=== PATIENT | female | born 1995 | race African-American/Black ===

== ENCOUNTER 2018-01-05 08:33 | Inpatient (IN) | payer OTHER ==
[2018-01-05] MEDS ORDERED: morphine 10 MG INJ (14:36)
[2018-01-05] MEDS: morphine 10 MG INJ IM (14:40)
[2018-01-05] MEDS: LACTATED RINGER'S 1,000 ML IV (14:40)
[2018-01-05] MEDS: LACTATED RINGER'S 1,000 ML IV* (19:40)
[2018-01-05] MEDS ORDERED: LACTATED RINGER'S 1,000 ML IV (19:45)
[2018-01-05] MEDS ORDERED: MISOPROSTOL 200 MCG TAB PR (20:00)
[2018-01-05] MEDS ORDERED: CARBOPROST 250 MCG INJ IM (20:00)
[2018-01-05] MEDS ORDERED: IBUPROFEN 600 MG TAB PO (20:00)
[2018-01-05] MEDS ORDERED: METHYLERGONOVINE 0.2 MG INJ IM (20:00)
[2018-01-05] MEDS ORDERED: OXYTOCIN 30 UNITS/LR 500 ML IV (20:00)
[2018-01-05 20:11] LABS: ADD MAN DIFF? NO
[2018-01-05 20:13] LABS: BASOPHILS % 0.2 % (0.0-2.0); EOSINOPHILS % 0.2 % (0.0-7.0); HEMATOCRIT 34.8 % (37.0-47.0); HEMOGLOBIN 11.5 g/dl (12.0-16.0); LYMPHOCYTES # 1.7 10^3/ul (0.8-2.9); LYMPHOCYTES % 9.9 % (15.0-51.0); MEAN CORPUSCULAR HEMOGLOBIN 26.7 pg (29.0-33.0); MEAN CORPUSCULAR VOLUME 80.7 fl (82.0-101.0); MEAN PLATELET VOLUME 11.6 fl (7.4-10.4); MONOCYTE # 1.5 10^3/ul (0.3-0.9); MONOCYTES % 8.9 % (0.0-11.0); NEUTROPHIL # 13.6 10^3/ul (1.6-7.5); NEUTROPHILS % 80.2 % (39.0-77.0); PLATELET COUNT 259 10^3/UL (140-415); RED BLOOD COUNT 4.31 10^6/ul (4.20-5.40); RED CELL DISTRIBUTION WIDTH 13.8 % (11.5-14.5)
[2018-01-05 20:13] LABS: WHITE BLOOD COUNT 16.9 10^3/ul (4.8-10.8)
[2018-01-05 20:36] LABS: INR 0.91; PROTIME 12.3 Sec (11.9-14.9)
[2018-01-05 20:37] LABS: PARTIAL THROMBOPLASTIN TIME 28.8 Sec (23.0-35.0)
[2018-01-05 21:02] LABS: HEPATITIS B SURFACE ANTIGEN NEGATIVE (NEGATIVE)
[2018-01-05] MEDS: AMPICILLIN 2 GM/NS (PMX) 100 ML IV (23:03)
[2018-01-06] MEDS ORDERED: AMPICILLIN 1 GM/NS (PMX) 50 ML IV
[2018-01-06] MEDS: BUTORPHANOL 2 MG INJ IV (00:10)
[2018-01-06] MEDS: LACTATED RINGER'S 1,000 ML IV* ×4 (00:32→19:00)
[2018-01-06] MEDS: AMPICILLIN 1 GM/NS (PMX) 50 ML IV ×3 (03:02→11:00)
[2018-01-06] MEDS ORDERED: NALOXONE (0.4 MG/ML) INJ IV (05:00)
[2018-01-06 06:53] LABS: HIV 1&2 ANTIBODY NEGATIVE (NEGATIVE)
[2018-01-06] MEDS ORDERED: OXYTOCIN 30 UNITS/LR 500 ML IV ×2 (10:30→17:00)
[2018-01-06] MEDS ORDERED: TERBUTALINE 0 ML (10:46)
[2018-01-06] MEDS: FENTAnyl 2MCG/ML-ROPIV 0.2% 100 ML BAG EPI (11:54)
[2018-01-06] MEDS: OXYTOCIN 30 UNITS/LR 500 ML IV ×3 (13:20→18:19)
[2018-01-06 15:39] LABS: RAPID PLASMA REAGIN NONREACTIVE (NR)
[2018-01-06] MEDS ORDERED: MISOPROSTOL 200 MCG TAB PR (17:00)
[2018-01-06] MEDS ORDERED: ZOLPIDEM 5 MG TAB PO (17:00)
[2018-01-06] MEDS ORDERED: DIBUCAINE 1% 30 GM OINT TOP (17:00)
[2018-01-06] MEDS ORDERED: HYDROCODONE/APAP (5/325) TAB PO ×2 (17:00)
[2018-01-06] MEDS ORDERED: METHYLERGONOVINE 0.2 MG INJ IM (17:00)
[2018-01-06] MEDS ORDERED: CARBOPROST 250 MCG INJ IM (17:00)
[2018-01-06] MEDS: WITCH HAZEL/GLYCERIN PAD PR (18:12)
[2018-01-06] MEDS: IBUPROFEN 600 MG TAB PO (18:13)
[2018-01-06] MEDS: CEPHALEXIN 500 MG CAP PO (18:13)
[2018-01-06] MEDS: BENZOCAINE 20% 56 ML SPRAY TOP (18:13)
[2018-01-06] MEDS: LANOLIN 7 GM TUBE TOP (18:14)
[2018-01-06] MEDS: TERBUTALINE 1 MG/ML INJ SC (19:00)
[2018-01-06] MEDS: LIDOCAINE 0.5% (SDV) 50 ML INJ INFIL (19:00)
[2018-01-06] MEDS: MINERAL OIL LIGHT 10 ML VIAL TOP (19:00)
[2018-01-06] MEDS: SENNA/DOCUSATE NA (8.6MG/50MG) TAB PO (20:58)
[2018-01-06] MEDS: MAGNESIUM HYDROXIDE 30ML CUP PO (20:58)
[2018-01-07] MEDS: IBUPROFEN 600 MG TAB PO ×3 (00:01→12:37)
[2018-01-07] MEDS: CEPHALEXIN 500 MG CAP PO ×4 (00:01→18:08)
[2018-01-07] MEDS: LACTATED RINGER'S 1,000 ML IV* ×2 (00:59→06:24)
[2018-01-07 07:52] LABS: ADD MAN DIFF? NO
[2018-01-07 08:12] LABS: ABNORMAL IP MESSAGE 1; BASOPHILS % 0.2 % (0.0-2.0); EOSINOPHILS # 0.1 10^3/ul (0.0-0.5); EOSINOPHILS % 0.5 % (0.0-7.0); HEMATOCRIT 32.6 % (37.0-47.0); HEMOGLOBIN 10.7 g/dl (12.0-16.0); LYMPHOCYTES # 2.7 10^3/ul (0.8-2.9); LYMPHOCYTES % 15.5 % (15.0-51.0); MEAN CORPUSCULAR HEMOGLOBIN 26.3 pg (29.0-33.0); MEAN CORPUSCULAR HGB CONC 32.8 g/dl (32.0-37.0); MEAN CORPUSCULAR VOLUME 80.1 fl (82.0-101.0); MEAN PLATELET VOLUME 10.8 fl (7.4-10.4); MONOCYTE # 2.5 10^3/ul (0.3-0.9); MONOCYTES % 14.6 % (0.0-11.0); NEUTROPHIL # 11.9 10^3/ul (1.6-7.5); NEUTROPHILS % 68.7 % (39.0-77.0); PLATELET COUNT 228 10^3/UL (140-415); RED BLOOD COUNT 4.07 10^6/ul (4.20-5.40); RED CELL DISTRIBUTION WIDTH 13.9 % (11.5-14.5)
[2018-01-07 08:12] LABS: WHITE BLOOD COUNT 17.3 10^3/ul (4.8-10.8)
[2018-01-07 08:14] LABS: POSITIVE DIFF @See below
[2018-01-07] MEDS: SENNA/DOCUSATE NA (8.6MG/50MG) TAB PO ×2 (09:48→21:00)
[2018-01-07] MEDS: MAGNESIUM HYDROXIDE 30ML CUP PO ×2 (09:48→21:00)
[2018-01-07 11:27] LABS: RHOGAM PROFILE 1 1
[2018-01-07 11:36] LABS: RUBELLA ANTIBODY - IGG 7.57 index
[2018-01-07] MEDS: IBUPROFEN 200 MG TAB PO (18:11)
[2018-01-08] MEDS: IBUPROFEN 200 MG TAB PO ×2 (00:02→05:53)
[2018-01-08] MEDS: CEPHALEXIN 500 MG CAP PO ×3 (00:02→12:17)
[2018-01-08] MEDS: LACTATED RINGER'S 1,000 ML IV* (03:41)
[2018-01-08 08:19] LABS: ADD MAN DIFF? NO
[2018-01-08 08:22] LABS: BASOPHILS % 0.2 % (0.0-2.0); EOSINOPHILS # 0.2 10^3/ul (0.0-0.5); EOSINOPHILS % 1.2 % (0.0-7.0); HEMATOCRIT 32.4 % (37.0-47.0); HEMOGLOBIN 10.5 g/dl (12.0-16.0); LYMPHOCYTES # 2.3 10^3/ul (0.8-2.9); LYMPHOCYTES % 18.6 % (15.0-51.0); MEAN CORPUSCULAR HEMOGLOBIN 26.2 pg (29.0-33.0); MEAN CORPUSCULAR HGB CONC 32.4 g/dl (32.0-37.0); MEAN CORPUSCULAR VOLUME 80.8 fl (82.0-101.0); MEAN PLATELET VOLUME 10.8 fl (7.4-10.4); MONOCYTE # 1.5 10^3/ul (0.3-0.9); NEUTROPHIL # 8.3 10^3/ul (1.6-7.5); NEUTROPHILS % 67.4 % (39.0-77.0); PLATELET COUNT 245 10^3/UL (140-415); RED BLOOD COUNT 4.01 10^6/ul (4.20-5.40); RED CELL DISTRIBUTION WIDTH 13.9 % (11.5-14.5)
[2018-01-08 08:22] LABS: WHITE BLOOD COUNT 12.3 10^3/ul (4.8-10.8)
[2018-01-08] MEDS: DIPHTH/TET/ACEL PERTUSS (ADULT) 0.5 ML VIAL IM* (09:00)
[2018-01-08] MEDS: VARICELLA VACCINE LIVE/PF 1,350 UNIT/0.5 ML ML SC* (09:00)
[2018-01-08] MEDS: SENNA/DOCUSATE NA (8.6MG/50MG) TAB PO (09:00)
[2018-01-08] MEDS: MEASLES,MUMPS,RUBELLA VACCINE INJ SC* (09:00)
[2018-01-08] MEDS: MAGNESIUM HYDROXIDE 30ML CUP PO (09:00)
[2018-01-08 11:36] LABS: RUBELLA ANTIBODY - IGM <20.00 AU/mL
== END 2018-01-08 13:45 | disposition home or self-care (01) | DRG 807 ==
LOC: OBT 08:33 → L-D 01-06 04:14 → PP1 01-06 16:45 → OBT 19:40 → L-D 19:40
PROVIDERS: Obstetrics & Gynecology
PROC: 10E0XZZ Delivery of Products of Conception, External Approach (ICD-10-PCS; principal; 2018-01-06)
PROC: 0UQKXZZ Repair Hymen, External Approach (ICD-10-PCS; 2018-01-06)
PROC: 3E033VJ Introduction of Other Hormone into Peripheral Vein, Percutaneous Approach (ICD-10-PCS; 2018-01-06)
DX: O70.0 First degree perineal laceration during delivery (principal); Z37.0 Single live birth; Z3A.38 38 weeks gestation of pregnancy
CPT/HCPCS: 36415; 62319; 85025; 85610; 85730; 86592; 86703; 86762; 86850; 86870; 86885; 86900; 86901; 87340; 90715; 90716; 96360; 96361